=== PATIENT | male | born 1980 | race Caucasian/White ===

== ENCOUNTER 2018-05-22 01:45 | Emergency (ER) | payer OTHER ==
[2018-05-22 01:46] VITALS: BMI 28.2
--- NOTE | 2018-05-22 01:46 | C.PDOC ---
History Of Present Illness 38 y/o male, who is an employee on [employer], states he was giving a gluteal injection and got a needle stick on his left fifth digit accidentally. States he used alcohol to clean the area and is up to date with vaccinations. Unaware of pts status. Time Seen by Provider: 05/22/18 01:49 EDT Chief Complaint (Nursing): Needle Stick History Per: Patient History/Exam Limitations: no limitations Onset/Duration Of Symptoms: Hrs Current Symptoms Are (Timing): Still Present Past Medical History Reviewed: Historical Data, Nursing Documentation, Vital Signs Vital Signs: Last Vital Signs Temp 97.9 F 05/22/18 01:47 EDT Pulse 64 05/22/18 01:47 EDT Resp 20 05/22/18 01:47 EDT BP 140/87 05/22/18 01:47 EDT Pulse Ox 99 05/22/18 01:47 EDT - Medical History PMH: Denies: Chronic Kidney Disease Surgical History: Endoscopy, Tonsillectomy Family History: States: No Known Family Hx - Social History Hx Alcohol Use: No Hx Substance Use: No - Immunization History Hx Tetanus Toxoid Vaccination: No Hx Influenza Vaccination: No Hx Pneumococcal Vaccination: No Review Of Systems Constitutional: Negative for: Fever, Chills Cardiovascular: Negative for: Chest Pain Respiratory: Negative for: Shortness of Breath Gastrointestinal: Negative for: Nausea, Vomiting Neurological: Negative for: Weakness, Numbness Physical Exam - Physical Exam Appears: Non-toxic, No Acute Distress Skin: Warm, Dry, Other (Puncture wound to palmar aspect of the distal left fifth digit) Head: Atraumatic, Normacephalic Eye(s): bilateral: Normal Inspection, EOMI Nose: Normal Oral Mucosa: Moist Chest: Symmetrical Respiratory: No Accessory Muscle Use Extremity: Normal ROM, No Tenderness, Capillary Refill (less than 2 seconds), No Swelling Extremity: Bilateral: Normal Color And Temperature, Normal ROM Pulses: Left Radial: Normal, Right Radial: Normal Neurological/Psych: Oriented x3, Normal Speech, Normal Sensation Gait: Steady ED Course And Treatment - Laboratory Results Result Diagrams: 05/22/18 02:26 05/22/18 02:26 O2 Sat by Pulse Oximetry: 99 (RA) Pulse Ox Interpretation: Normal Progress Note: Labs and urinalysis ordered. Tivicay and truvada given. Wound care performed by RN. PEP given for 3 days. Explained patient to follow up with the results of the patient he was injecting. Patient did not want to wait for his labs to return and wants to be discharged. Case was discussed with Dr. Bolaños who agreed to discharge patient home. Disposition - Disposition Disposition: HOME/ ROUTINE Disposition Time: 02:09 Condition: STABLE Additional Instructions: Follow up with employee health on Wednesday. Return to ER if symptoms persist or worsen. Prescriptions: Dolutegravir Sodium [Tivicay] 50 mg PO DAILY #2 tab Emtricitabine/Tenofovir Diso [Truvada 200 MG-300 MG] 1 tab PO DAILY #2 tab Instructions: Needle Stick Injuries (ED) Forms: [employer] (Greek) - Clinical Impression Clinical Impression: Needle stick injury - PA / PROP SAWYER / Resident Statement MD/DO has reviewed & agrees with the documentation as recorded. - Scribe Statement The provider has reviewed the documentation as recorded by the Scribe Portia Treadwell All medical record entries made by the Scribe were at my direction and personally dictated by me. I have reviewed the chart and agree that the record accurately reflects my personal performance of the history, physical exam, medical decision making, and the department course for this patient. I have also personally directed, reviewed, and agree with the discharge instructions and disposition.
[2018-05-22] MEDS ORDERED: Emtricitabine-Tenofovir 200 mg-300 mg Tab PO STA (01:51)
--- NOTE | 2018-05-22 01:51 | C.PDOC ---
Time Seen by Provider: 05/22/18 01:49 EDT Chief Complaint (Nursing): Needle Stick Past Medical History Vital Signs: Last Vital Signs Temp 97.9 F 05/22/18 01:47 EDT Pulse 64 05/22/18 01:47 EDT Resp 20 05/22/18 01:47 EDT BP 140/87 05/22/18 01:47 EDT Pulse Ox 99 05/22/18 01:47 EDT - Medical History PMH: Denies: Chronic Kidney Disease Surgical History: Endoscopy, Tonsillectomy - Social History Hx Alcohol Use: No Hx Substance Use: No - Immunization History Hx Tetanus Toxoid Vaccination: No Hx Influenza Vaccination: No Hx Pneumococcal Vaccination: No ED Course And Treatment O2 Sat by Pulse Oximetry: 99 Disposition - Disposition Prescriptions: Dolutegravir Sodium [Tivicay] 50 mg PO DAILY #2 tab Emtricitabine/Tenofovir Diso [Truvada 200 MG-300 MG] 1 tab PO DAILY #2 tab Forms: [employer] (Iranian)
[2018-05-22 02:32] LABS: BASO % 0.6 % (0.0-2.0); EOS # 0.1 K/uL (0.0-0.7); HEMOGLOBIN 15.2 g/dL (12.0-18.0); LYMPH # 1.7 K/uL (1.0-4.3); LYMPH % 22.5 % (20.0-40.0); MEAN CELL VOLUME 84.5 fL (80.0-94.0); MEAN CORPUSCULAR HGB CONC 34.3 g/dL (33.0-37.0); MONO # 0.5 K/uL (0.0-0.8); MONO % 7.5 % (0.0-10.0); NEUT % 67.4 % (50.0-75.0); NRBC % 0.1 % (0.0-2.0); RBC 5.24 Mil/uL (4.40-5.90); RED CELL DISTRIBUTION WIDTH 12.6 % (11.5-14.5); WHITE BLOOD COUNT 7.3 K/uL (4.8-10.8)
[2018-05-22 02:42] LABS: ALB/GLOB RATIO 1.5 (1.0-2.1); ALBUMIN 4.6 g/dL (3.5-5.0); ALT/SGPT 45 U/L (21-72); AMYLASE 64 U/L (30-110); AST/SGOT 29 U/L (17-59); BLOOD UREA NITROGEN 21 mg/dL (9-20); CALCIUM 9.7 mg/dl (8.6-10.4); GFR NON-AFRICAN AMERICAN > 60
[2018-05-22 03:13] LABS: HEPATITIS B SURFACE AG Negative (NEGATIVE)
[2018-05-22 03:19] LABS: HEPATITIS A IGM NEGATIVE (NEGATIVE); HEPATITIS B CORE AB NEGATIVE (NEGATIVE)
[2018-05-22 03:26] VITALS: BP 128/78; PULSE 88; RESP 20; TEMP 98.4; O2SAT 99
[2018-05-22 03:31] LABS: HEPATITIS C ANTIBODY NEGATIVE (NEGATIVE)
[2018-05-23] MEDS ORDERED: Emtricitabine-Tenofovir 200 mg-300 mg Tab PO NR (01:52)
== END 2018-05-22 02:30 | disposition home or self-care (01) ==
LOC: C.ER 01:45
DX: S61.237A Puncture wound without foreign body of left little finger without damage to nail, initial encounter (principal); W46.0XXA Contact with hypodermic needle, initial encounter; Y92.239 Unspecified place in hospital as the place of occurrence of the external cause; Y99.0 Civilian activity done for income or pay